=== PATIENT | male | born 1955 | race Caucasian/White ===

== ENCOUNTER 2022-08-26 19:52 | Emergency (ER) | payer SELFPAY ==
[~2022-08-26] VITALS: Ht 172.7 cm; Wt 82.0 kg
[2022-08-26 21:09] LABS: BASOPHILS % 0.6 % (0.0-2.0); EOSINOPHILS % 1.3 % (0.0-5.0); HEMATOCRIT. 36.5 % (42.0-52.0); HEMOGLOBIN. 12.4 g/dL (14.0-18.0); LYMPHOCYTES % 33.2 % (20.0-50.0); MEAN PLATELET VOLUME 7.9 fl (7.4-10.4); MONOCYTES % 8.3 % (2.0-8.0); NEUTROPHILS % 56.6 % (40.0-76.0); PLATELET 160 x1000/uL (130-400); RED BLOOD CELL COUNT 4.01 mill/uL (4.7-6.1)
[2022-08-26 21:23] LABS: CHLORIDE 100 mEq/L (98-107)
[2022-08-26 21:37] LABS: ETHANOL BLOOD 405 mg/dL
[2022-08-27 03:45] VITALS: BP 148/85
== END 2022-08-27 03:50 | disposition home or self-care (01) ==
LOC: ER 19:52
DX: F10.129 Alcohol abuse with intoxication, unspecified (principal); Y90.8 Blood alcohol level of 240 mg/100 ml or more
CPT/HCPCS: 36415; 80053; 80320; 82962; 85025; 99283; G0480